=== PATIENT | female | born 1995 | race Caucasian/White ===

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

== ENCOUNTER 2017-08-14 10:54 | Emergency (ER) | payer OTHER ==
[~2017-08-14] VITALS: Ht 165.1 cm; Wt 122.7 kg
[~2017-08-14 10:54] MED LIST: IBUP1TAB7 PO
[2017-08-14 11:20] VITALS: BP 168/80; PULSE 71; RESP 16; TEMP 98.1; O2SAT 98
[2017-08-14] MEDS ORDERED: KETOROLAC TROMETHAMINE 60 MG/2 ML (IM) VIAL IM ONE (13:15)
--- NOTE | 2017-08-14 13:28 | PD ---
HPI Chief Complaint: Manager Business Systems Problem/Complaint Time Seen by Provider: 13:07 Travel History International Travel<30 days: No Contact w/Intl Traveler<30days: No Traveled to known affect area: No History of Present Illness HPI Patient is a 22-year-old female presenting to the emergency department for evaluation of a heavy menstrual cycle. Patient states it started yesterday, she reports passing clots and has lower abdominal cramping. She states she has a history of heavy periods, she saw a deoiling machine operator for this in the past. She states that she had an ultrasound done but does not have any fibroids. She denies any dizziness, shortness of breath, chest pain, headache. She reports that her periods are regular, lasting 4-5 days. She has no other complaints at this time. Symptoms are chronic in nature. She currently reports her pain is a 6 out of 10 and states is cramping, no alleviating factors. She did take Midol 2 hours prior to arrival. [facility] Past Medical History Reproductive: Yes (Heavy menstrual cycles) ?: Not LMP: on now Social History Tobacco Use: No Allergies-Medications (Allergen,Severity, Reaction): Coded Allergies: amoxicillin (Unverified Allergy, Mild, Hives, 12/20/16) Reported Meds & Prescriptions Reported Meds & Active Scripts Active No Active Prescriptions or Reported Medications Review of Systems Except as stated in HPI: all other systems reviewed are Neg Genitourinary: Positive: Pelvic Pain (Cramping), Vaginal Bleeding Physical Exam Narrative GENERAL: Obese, well-developed, alert -B[place] female. Presenting in no acute distress. SKIN: Warm and dry. HEAD: Atraumatic. Normocephalic. EYES: Pupils equal and round. No scleral icterus. No injection or drainage. ENT: No nasal bleeding or discharge. Mucous membranes pink and moist. NECK: Trachea midline. No JVD. CARDIOVASCULAR: Regular rate and rhythm. RESPIRATORY: No accessory muscle use. Clear to auscultation. Breath sounds equal bilaterally. GASTROINTESTINAL: Abdomen soft, non-tender, nondistended. Hepatic and splenic margins not palpable. MUSCULOSKELETAL: Extremities without clubbing, cyanosis, or edema. No obvious deformities. NEUROLOGICAL: Awake and alert. No obvious cranial nerve deficits. Motor grossly within normal limits. Five out of 5 muscle strength in the arms and legs. Normal speech. PSYCHIATRIC: Appropriate mood and affect; insight and judgment normal. Data Data Last Documented VS Vital Signs Date Time Temp Pulse Resp B/P (MAP) Pulse Ox O2 Delivery O2 Flow Rate FiO2 08/14/17 11:20 98.1 71 16 168/80 (109) 98 Orders Orders Complete Blood Count With Diff (08/14/17 11:23) Basic Metabolic Panel (Bmp) (08/14/17 11:23) Urinalysis - C+S If Indicated (08/14/17 11:23) Ed Urine Pregnancytest Poc (08/14/17 11:23) Ketorolac Inj (Toradol Inj) (08/14/17 13:15) Labs Laboratory Tests Test 08/14/17 12:00 White Blood Count 8.4 TH/MM3 Red Blood Count 5.15 MIL/MM3 Hemoglobin 14.6 GM/DL Hematocrit 42.3 % Mean Corpuscular Volume 82.2 FL Mean Corpuscular Hemoglobin 28.3 PG Mean Corpuscular Hemoglobin Concent 34.5 % Red Cell Distribution Width 13.7 % Platelet Count 306 TH/MM3 Mean Platelet Volume 9.7 FL Neutrophils (%) (Auto) 51.0 % Lymphocytes (%) (Auto) 35.7 % Monocytes (%) (Auto) 8.9 % Eosinophils (%) (Auto) 3.8 % Basophils (%) (Auto) 0.6 % Neutrophils # (Auto) 4.3 TH/MM3 Lymphocytes # (Auto) 3.0 TH/MM3 Monocytes # (Auto) 0.7 TH/MM3 Eosinophils # (Auto) 0.3 TH/MM3 Basophils # (Auto) 0.1 TH/MM3 CBC Comment DIFF FINAL Differential Comment Urine Color LIGHT-YELLOW Urine Turbidity CLEAR Urine pH 5.0 Urine Specific [place] 1.020 Urine Protein NEG mg/dL Urine Glucose (UA) NEG mg/dL Urine Ketones TRACE mg/dL Urine Occult Blood LARGE Urine Nitrite NEG Urine Bilirubin NEG Urine Urobilinogen LESS THAN 2.0 MG/DL Urine Leukocyte Esterase NEG Urine RBC /hpf Urine WBC 1 /hpf Urine Squamous Epithelial Cells <1 /hpf Urine Bacteria FEW /hpf Urine Mucus FEW /lpf Microscopic Urinalysis Comment CULT NOT INDICATED Blood Urea Nitrogen 7 MG/DL Creatinine 0.61 MG/DL Random Glucose 73 MG/DL Calcium Level 8.7 MG/DL Sodium Level 138 MEQ/L Potassium Level 3.9 MEQ/L Chloride Level 105 MEQ/L Carbon Dioxide Level 24.0 MEQ/L Anion Gap 9 MEQ/L Estimat Glomerular Filtration Rate 125 ML/MIN MDM Medical Decision Making Medical Screen Exam Complete: Yes Emergency Medical Condition: Yes Interpretation(s) Laboratory Tests Test 08/14/17 12:00 White Blood Count 8.4 TH/MM3 Red Blood Count 5.15 MIL/MM3 Hemoglobin 14.6 GM/DL Hematocrit 42.3 % Mean Corpuscular Volume 82.2 FL Mean Corpuscular Hemoglobin 28.3 PG Mean Corpuscular Hemoglobin Concent 34.5 % Red Cell Distribution Width 13.7 % Platelet Count 306 TH/MM3 Mean Platelet Volume 9.7 FL Neutrophils (%) (Auto) 51.0 % Lymphocytes (%) (Auto) 35.7 % Monocytes (%) (Auto) 8.9 % Eosinophils (%) (Auto) 3.8 % Basophils (%) (Auto) 0.6 % Neutrophils # (Auto) 4.3 TH/MM3 Lymphocytes # (Auto) 3.0 TH/MM3 Monocytes # (Auto) 0.7 TH/MM3 Eosinophils # (Auto) 0.3 TH/MM3 Basophils # (Auto) 0.1 TH/MM3 CBC Comment DIFF FINAL Differential Comment Urine Color LIGHT-YELLOW Urine Turbidity CLEAR Urine pH 5.0 Urine Specific [place] 1.020 Urine Protein NEG mg/dL Urine Glucose (UA) NEG mg/dL Urine Ketones TRACE mg/dL Urine Occult Blood LARGE Urine Nitrite NEG Urine Bilirubin NEG Urine Urobilinogen LESS THAN 2.0 MG/DL Urine Leukocyte Esterase NEG Urine RBC /hpf Urine WBC 1 /hpf Urine Squamous Epithelial Cells <1 /hpf Urine Bacteria FEW /hpf Urine Mucus FEW /lpf Microscopic Urinalysis Comment CULT NOT INDICATED Blood Urea Nitrogen 7 MG/DL Creatinine 0.61 MG/DL Random Glucose 73 MG/DL Calcium Level 8.7 MG/DL Sodium Level 138 MEQ/L Potassium Level 3.9 MEQ/L Chloride Level 105 MEQ/L Carbon Dioxide Level 24.0 MEQ/L Anion Gap 9 MEQ/L Estimat Glomerular Filtration Rate 125 ML/MIN Vital Signs Date Time Temp Pulse Resp B/P (MAP) Pulse Ox O2 Delivery O2 Flow Rate FiO2 08/14/17 11:20 98.1 71 16 168/80 (514) 26 Differential Diagnosis Anemia versus dysfunctional uterine bleeding versus UTI versus other Narrative Course Patient is a well-appearing 22-year-old female presenting for evaluation of a heavy menstrual cycle. Patient's vital signs are stable. Labs were ordered in triage. CBC, chemistry, urinalysis reviewed, no acute findings identified. Urine is negative. Patient is encouraged to follow-up with her deoiling machine operator. She was given Toradol for the cramping in the emergency department. She will be provided with a prescription for ibuprofen. She is advised to return to emergency department for any new or worsening symptoms. Patient stable for discharge. Diagnosis Primary Impression: Heavy menstrual period Qualified Codes: N92.0 - Excessive and frequent menstruation with regular cycle Referrals: Senior Systems Architect Patient Instructions: General Instructions, Menopause (GEN) Additional Instructions: Follow-up with your deoiling machine operator Return to emergency department for any new or worsening symptoms Med/Other Pt SpecificInfo: Prescription(s) given Scripts Ibuprofen (Ibuprofen) 800 Mg Tab 800 MG PO Q6HR Y for PAIN, #40 TAB 0 Refills Prov: Paola Paula 08/14/17 Disposition: 01 DISCHARGE HOME Condition: Stable Paola Paula Aug 14, 2017 13:28
[2017-08-14 13:50] LABS: AUTOMATED NEUTROPHIL # 4.3 TH/MM3 (1.8-7.7); BASOPHIL # 0.1 TH/MM3 (0-0.2); BASOPHIL % 0.6 % (0.0-2.0); EOSINOPHIL # 0.3 TH/MM3 (0-0.4); EOSINOPHIL % 3.8 % (0.0-4.0); HEMATOCRIT 42.3 % (35.0-46.0); HEMOGLOBIN 14.6 GM/DL (11.6-15.3); LYMPH % 35.7 % (9.0-44.0); MEAN CELL VOLUME 82.2 FL (80.0-100.0); MEAN CORPUSCULAR HEMOGLOBIN 28.3 PG (27.0-34.0); MEAN CORPUSCULAR HGB CONC 34.5 % (32.0-36.0); MEAN PLATELET VOLUME 9.7 FL (7.0-11.0); MONO % 8.9 % (0.0-8.0); MONOCYTE # 0.7 TH/MM3 (0-0.9); PLATELET COUNT 306 TH/MM3 (150-450); RED BLOOD COUNT 5.15 MIL/MM3 (4.00-5.30); RED CELL DISTRIBUTION WIDTH 13.7 % (11.6-17.2); WHITE BLOOD COUNT 8.4 TH/MM3 (4.0-11.0)
[2017-08-14 13:54] LABS: BILIRUBIN, URINE NEG (NEG); BLOOD, URINE LARGE (NEG); GLUCOSE,URINE NEG (NEG); KETONE, URINE TRACE mg/dL (NEG); MUCUS URINE FEW /lpf (OCC); NITRITE,URINE NEG (NEG); SQUAMOUS EPITHELIAL CELL URINE <1 /hpf (0-5); URINE COLOR LIGHT-YELLOW (YELLW/STRAW); URINE LEUKOCYTE ESTERASE NEG (NEG)
[2017-08-14 13:58] LABS: BACTERIA, URINE FEW /hpf
[2017-08-14 14:00] VITALS: BP 140/80; PULSE 70; RESP 15; O2SAT 99
[2017-08-14 14:02] LABS: CALCIUM 8.7 MG/DL (8.5-10.1); CREATININE 0.61 MG/DL (0.50-1.00)
[2017-08-14] MEDS ORDERED: IBUP1TAB7 PO (14:14)
== END 2017-08-14 14:39 | disposition home or self-care (01) ==
LOC: NEPD 10:54
DX: N92.0 Excessive and frequent menstruation with regular cycle (principal)
CPT/HCPCS: 80048; 81001; 84703; 85025; 96372; 99283; J1885

== ENCOUNTER 2017-10-18 18:04 | Emergency (ER) | payer OTHER ==
[~2017-10-18] VITALS: Ht 162.6 cm; Wt 130.0 kg
[2017-10-18 18:15] VITALS: BP 129/71; PULSE 72; RESP 16; TEMP 98; O2SAT 100
[2017-10-18] MEDS ORDERED: SODIUM CHLORIDE 0.9% FLUSH 10 ML FLUSH IV FLUSH PRN (19:15)
--- NOTE | 2017-10-18 19:21 | RADRPT ---
EXAM DATE: 10/18/2017 7:15 PM EDT AGE/SEX: 22 years / Female INDICATIONS: Short of breath for 3 days. CLINICAL DATA: This is the patient's initial encounter. Patient reports that signs and symptoms have been present for 3 days and indicates a pain score of 1/10. MEDICAL/SURGICAL HISTORY: None. None. COMPARISON: No prior exams available for comparison. FINDINGS: A single AP view of the chest demonstrates the lungs to be symmetrically aerated without evidence of mass, infiltrate or effusion. The cardiomediastinal contours are unremarkable. Osseous structures a re intact. CONCLUSION: Negative examination. Electronically signed by: Landon Ambrosio MD 10/18/2017 7:19 PM EDT
[2017-10-18 20:37] LABS: AUTOMATED NEUTROPHIL # 4.1 TH/MM3 (1.8-7.7); BASOPHIL # 0.1 TH/MM3 (0-0.2); BASOPHIL % 0.7 % (0.0-2.0); EOSINOPHIL # 0.3 TH/MM3 (0-0.4); EOSINOPHIL % 3.6 % (0.0-4.0); HEMATOCRIT 42.5 % (35.0-46.0); HEMOGLOBIN 14.7 GM/DL (11.6-15.3); LYMPH % 41.1 % (9.0-44.0); LYMPHOCYTE # 3.5 TH/MM3 (1.0-4.8); MEAN CELL VOLUME 82.1 FL (80.0-100.0); MEAN CORPUSCULAR HEMOGLOBIN 28.5 PG (27.0-34.0); MEAN CORPUSCULAR HGB CONC 34.7 % (32.0-36.0); MEAN PLATELET VOLUME 9.8 FL (7.0-11.0); MONO % 6.1 % (0.0-8.0); MONOCYTE # 0.5 TH/MM3 (0-0.9); NEUT % 48.5 % (16.0-70.0); PLATELET COUNT 295 TH/MM3 (150-450); RED BLOOD COUNT 5.17 MIL/MM3 (4.00-5.30); RED CELL DISTRIBUTION WIDTH 13.4 % (11.6-17.2); WHITE BLOOD COUNT 8.5 TH/MM3 (4.0-11.0)
[2017-10-18 21:03] LABS: BICARBONATE 22.7 MEQ/L (21.0-32.0); CALCIUM 9.3 MG/DL (8.5-10.1); CREATININE 0.74 MG/DL (0.50-1.00)
--- NOTE | 2017-10-18 21:24 | PD ---
HPI Chief Complaint: Respiratory Symptoms Time Seen by Provider: 18:59 Travel History International Travel<30 days: No Contact w/Intl Traveler<30days: No Traveled to known affect area: No History of Present Illness HPI 22-year-old female came to the emergency room with history of shortness of breath it has been going on for past couple of days. She says she has an inhaler at home which she has been using like her doctor has prescribed but it is not helping. Vital signs have been stable. No history of chest pain. Patient did not appear to be in any distress. She smokes 5 times a day marijuana she says. No history of fever or chills. No history of cough. [facility] Past Medical History Narrative Medical List of her past medical, surgical, social and family history is reviewed from the nursing note Diminished Hearing: No Reproductive: Yes (Heavy menstrual cycles) Immunizations Current: Yes ?: Not Past Surgical History Tonsillectomy: Yes Social History Alcohol Use: Yes (occ) Tobacco Use: No Substance Use: Yes (marijuana ) Allergies-Medications (Allergen,Severity, Reaction): Coded Allergies: amoxicillin (Unverified Allergy, Mild, Hives, 10/20/17) Comments List of her allergies reviewed from the nursing note. Reported Meds & Prescriptions Reported Meds & Active Scripts Active No Active Prescriptions or Reported Medications Narrative Medication List of her home medications reviewed from the nursing note. Review of Systems Except as stated in HPI: all other systems reviewed are Neg Respiratory: Positive: Shortness of Breath Physical Exam Narrative GENERAL: Awake, alert, no obvious distress, morbidly obese SKIN: Focused skin assessment warm/dry. HEAD: Atraumatic. Normocephalic. EYES: Pupils equal and round. No scleral icterus. No injection or drainage. ENT: No nasal bleeding or discharge. Mucous membranes pink and moist. NECK: Trachea midline. No JVD. CARDIOVASCULAR: Regular rate and rhythm. No murmur appreciated. RESPIRATORY: No accessory muscle use. Clear to auscultation. Breath sounds equal bilaterally. GASTROINTESTINAL: Abdomen soft, non-tender, nondistended. Hepatic and splenic margins not palpable. MUSCULOSKELETAL: No obvious deformities. No clubbing. No cyanosis. No edema. NEUROLOGICAL: Awake and alert. No obvious cranial nerve deficits. Motor grossly within normal limits. Normal speech. PSYCHIATRIC: Appropriate mood and affect; insight and judgment normal. Data Data Last Documented VS Vital Signs Date Time Temp Pulse Resp B/P (MAP) Pulse Ox O2 Delivery O2 Flow Rate FiO2 10/18/17 18:15 98.0 72 16 129/71 (90) 100 Orders Orders Chest, Single Ap (10/18/17 18:59) Basic Metabolic Panel (Bmp) (10/18/17 19:04) Complete Blood Count With Diff (10/18/17 19:04) Iv Access Insert/Monitor (10/18/17 19:04) Sodium Chloride 0.9% Flush (Ns Flush) (10/18/17 19:15) D-Dimer (10/18/17 19:04) Ed Discharge Order (10/18/17 21:14) Labs Laboratory Tests Test 10/18/17 19:59 White Blood Count 8.5 TH/MM3 Red Blood Count 5.17 MIL/MM3 Hemoglobin 14.7 GM/DL Hematocrit 42.5 % Mean Corpuscular Volume 82.1 FL Mean Corpuscular Hemoglobin 28.5 PG Mean Corpuscular Hemoglobin Concent 34.7 % Red Cell Distribution Width 13.4 % Platelet Count 295 TH/MM3 Mean Platelet Volume 9.8 FL Neutrophils (%) (Auto) 48.5 % Lymphocytes (%) (Auto) 41.1 % Monocytes (%) (Auto) 6.1 % Eosinophils (%) (Auto) 3.6 % Basophils (%) (Auto) 0.7 % Neutrophils # (Auto) 4.1 TH/MM3 Lymphocytes # (Auto) 3.5 TH/MM3 Monocytes # (Auto) 0.5 TH/MM3 Eosinophils # (Auto) 0.3 TH/MM3 Basophils # (Auto) 0.1 TH/MM3 CBC Comment DIFF FINAL Differential Comment D-Dimer Quantitative (PE/DVT) 0.30 MG/L FEU Blood Urea Nitrogen 7 MG/DL Creatinine 0.74 MG/DL Random Glucose 66 MG/DL Calcium Level 9.3 MG/DL Sodium Level 139 MEQ/L Potassium Level 3.5 MEQ/L Chloride Level 102 MEQ/L Carbon Dioxide Level 22.7 MEQ/L Anion Gap 14 MEQ/L Estimat Glomerular Filtration Rate 100 ML/MIN MDM Medical Decision Making Medical Screen Exam Complete: Yes Emergency Medical Condition: Yes Medical Record Reviewed: Yes Differential Diagnosis PE, COPD exacerbation, pneumonia Narrative Course 9:22 PM blood test results are back and within normal limit. Chest x-ray is negative. I went over the test results with the patient. I have recommended her to not smoke until her symptoms are better. Also she should take her inhaler 2 puffs every 4-6 hours. I will discharge her home. Procedures EKG Prior to Arrival: No Diagnosis Primary Impression: Subjective dyspnea Additional Impressions: Shortness of breath Marijuana abuse Referrals: Primary Care Physician 2 days Additional Instructions: You should stop smoking until your symptoms are completely improved. Take the albuterol inhaler 2 puffs every 4-6 hours. Follow-up with your primary care especially if symptoms are not better in next couple days after following the above instructions. Your primary care might have to refer you to a trading assistant for further workup. Med/Other Pt SpecificInfo: No Change to Meds Scripts No Active Prescriptions or Reported Meds Disposition: 01 DISCHARGE HOME Condition: Stable Paola Martin MD Oct 18, 2017 21:24
== END 2017-10-18 21:57 | disposition home or self-care (01) ==
LOC: NEPK 18:04 → NEPD 21:57
DX: R06.00 Dyspnea, unspecified (principal); R06.02 Shortness of breath; F12.10 Cannabis abuse, uncomplicated
CPT/HCPCS: 71045; 80048; 85025; 85379; 99284

== ENCOUNTER 2017-10-20 03:40 | Emergency (ER) | payer OTHER ==
[~2017-10-20] VITALS: Ht 165.1 cm; Wt 130.0 kg
[2017-10-20 03:59] VITALS: BP 142/68; PULSE 65; RESP 20; TEMP 98.5; O2SAT 100
--- NOTE | 2017-10-20 05:26 | PD ---
HPI Chief Complaint: Respiratory Symptoms Time Seen by Provider: 04:46 Travel History International Travel<30 days: No Contact w/Intl Traveler<30days: No Traveled to known affect area: No History of Present Illness HPI 22-year-old female presents with shortness of breath 5 days. She has been seen by her family physician as well as 3 other hospital visits including 1 2 days ago at [facility]. She states that she cannot breathe and she cannot sleep and would like someone to "look into her lungs" Patient is a smoker but states she has not smoked since Monday (3 days ago). No reports of pain. PFSH Past Medical History Medical History: Denies Significant Hx Diminished Hearing: No Reproductive: Yes (Heavy menstrual cycles) Immunizations Current: Yes Tetanus Vaccination: Unknown Influenza Vaccination: No ?: Not Past Surgical History Surgical History: No Previous Surgery Tonsillectomy: Yes Social History Alcohol Use: Yes (occ) Tobacco Use: No Substance Use: Yes (marijuana ) Allergies-Medications (Allergen,Severity, Reaction): Coded Allergies: amoxicillin (Unverified Allergy, Mild, Hives, 10/20/17) Reported Meds & Prescriptions Reported Meds & Active Scripts Active No Active Prescriptions or Reported Medications Review of Systems Except as stated in HPI: all other systems reviewed are Neg Respiratory: Positive: Shortness of Breath Physical Exam Narrative GENERAL: 22-year-old female in no distress SKIN: Focused skin assessment warm/dry. HEAD: Atraumatic. Normocephalic. EYES: Pupils equal and round. No scleral icterus. No injection or drainage. ENT: No nasal bleeding or discharge. Mucous membranes pink and moist. NECK: Trachea midline. No JVD. CARDIOVASCULAR: Regular rate and rhythm. No murmur appreciated. RESPIRATORY: No accessory muscle use. Clear to auscultation. Breath sounds equal bilaterally. GASTROINTESTINAL: Abdomen soft, non-tender, nondistended. Hepatic and splenic margins not palpable. Data Data Last Documented VS Vital Signs Date Time Temp Pulse Resp B/P (MAP) Pulse Ox O2 Delivery O2 Flow Rate FiO2 10/20/17 05:20 10/20/17 03:59 98.5 65 20 100 Room Air MDM Medical Decision Making Medical Screen Exam Complete: Yes Emergency Medical Condition: Yes Differential Diagnosis Normal exam Narrative Course Upon review of the patient's chart from 2 days ago all of her studies including d-dimer were negative. I had a discussion with her about obesity as a potential cause for her shortness of breath as well as deconditioning. I encouraged her to follow-up with her primary care physician in order to arrange the appropriate follow-up. Patient was asked to wait for her paperwork but decided to leave without it Diagnosis Primary Impression: Shortness of breath Patient Instructions: General Instructions Departure Forms: Tests/Procedures Scripts No Active Prescriptions or Reported Meds Disposition: 01 DISCHARGE HOME Condition: Good Bri Maya DO Oct 20, 2017 05:26
== END 2017-10-20 05:38 | disposition home or self-care (01) ==
LOC: NEPC 03:40
DX: R06.02 Shortness of breath (principal); F12.90 Cannabis use, unspecified, uncomplicated
CPT/HCPCS: 99281